=== PATIENT | female | born 1955 | race Two or more races ===

== ENCOUNTER 2025-04-12 08:00 | Day surgery (SDC) | payer OTHER ==
[2025-04-05 14:42] VITALS: BP 130/80
[~2025-04-12] VITALS: Ht 170.2 cm; Wt 71.2 kg
[~2025-04-12 08:00] MED LIST: LIPITOR40 M1 PO; SYNTHROID50 MCG PO; TOPROL XL25 M1 PO; ZETIA10 MG PO
[2025-04-12] MEDS ORDERED: hydrALAZINE HCL 20 MG VIAL ONE (14:26)
[2025-04-12] MEDS ORDERED: DICLOFENAC SODIUM 100 MG SUPP.RECT RECTAL ONE (14:30)
[2025-04-12] MEDS ORDERED: GLUCAGON 1 MG VIAL IV ONE (14:45)
[2025-04-12] MEDS ORDERED: IOVERSOL 320 MG/ML - 50 ML VIAL IV ONE (14:45)
[2025-04-12] MEDS ORDERED: SUGAMMADEX SODIUM 200 MG/2 ML VIAL IV ONE (14:48)
== END 2025-04-12 17:30 | disposition home or self-care (01) ==
LOC: CIR.AMB 08:00
PROVIDERS: ATTEND Internal Medicine
DX: K80.50 Calculus of bile duct without cholangitis or cholecystitis without obstruction (principal); R93.2 Abnormal findings on diagnostic imaging of liver and biliary tract
CPT/HCPCS: 43274; C1748